=== PATIENT | female | born 1980 | race Hispanic/Latino ===

== ENCOUNTER 2018-09-02 23:23 | Emergency (ER) | payer SELFPAY ==
[2018-09-03 00:20] LABS: BHCG - Serum Negative (NEGATIVE); Pregs Control Background? CLEAR/WHITE (CLR/WHITE); Pregs Control Bar Appear? YES (CONTROL BAR)
[2018-09-03] MEDS ORDERED: Ondansetron PF 4 MG/2 ML Vial ONE (01:27)
[2018-09-03] MEDS ORDERED: Acetaminophen 500 MG TAB ONE (01:27)
[2018-09-03] MEDS ORDERED: Metoclopramide HCl 10 MG/2 ML VIAL ONE (01:27)
--- NOTE | 2018-09-03 09:32 | CT ---
PRELIMINARY REPORT/[facility]/EMERGENCY AFTER HOURS PROCEDURE: EXAM: CT Head Without Contrast EXAM DATE/TIME: 09/03/2018 1:04 AM CLINICAL HISTORY: 38 years old, female; Pain; Headache; Headache not specified; Patient HX: Headache onset yesterday. S tarted taking busprone yesterday TECHNIQUE: Axial computed tomography images of the head/brain without contrast. COMPARISON: No relevant prior studies available. FINDINGS: Brain: No evidence of acute intracranial hemorrhage, extraxial fluid or midline shift. No evidence of acute large vessel infarction. Ventricles: Normal. No ventriculomegaly. Bones/joints: Unremarkable. No acute fracture. Sinuses: Visualized sinuses are unremarkable. No acute sinusitis. Mastoid air cells: Visualized mastoid air cells are unremarkable. No mastoid effusion. Soft tissues: Unremarkable. IMPRESSION: 1. No evidence of acute intracranial hemorrhage, extraxial fluid or midline shift. 2. No evidence of acute large vessel infarction. Thank you for allowing us to participate in the care of your patient. Dictated and Authenticated by: Mary Bellamy MD 09/03/2018 1:46 AM Central Time ([place]) FINAL REPORT CT BRAIN WITHOUT CONTRAST: Date: 09/03/18 INDICATION: History of headache. IMPRESSION: I agree with the preliminary report provided by [facility]. No definite acute intracranial abnormality demo nstrated. POS:
== END 2018-09-03 02:33 | disposition home or self-care (01) ==
LOC: ERS 23:23
DX: R51 Headache (principal); F41.9 Anxiety disorder, unspecified; Z79.899 Other long term (current) drug therapy
CPT/HCPCS: 70450; 84703; 96365; 96375; J2405; J2765